=== PATIENT | female | born 1970 ===

== ENCOUNTER 2018-02-08 06:13 | Emergency (ER) | payer OTHER ==
[~2018-02-08] VITALS: Ht 165.1 cm; Wt 49.0 kg
[2018-02-08] MEDS ORDERED: NORFLEX100MG PO (13:38)
[2018-02-08] MEDS ORDERED: MEDROLPACK PO (13:38)
[2018-02-08] MEDS ORDERED: KETO10TA2 PO (13:38)
== END 2018-02-08 14:53 | disposition home or self-care (01) ==
LOC: ER 06:13
DX: D25.9 Leiomyoma of uterus, unspecified (principal); R10.31 Right lower quadrant pain